=== PATIENT | female | born 1970 | race Caucasian/White ===

== ENCOUNTER → 2016-03-29 | Outpatient (CLI) | payer SELFPAY ==
--- NOTE | 2016-03-29 15:53 | US ---
EXAMINATION TYPE: US pelvic complete DATE OF EXAM: 03/29/2016 3:45 PM COMPARISON: NONE CLINICAL HISTORY: N92.6 Irregular Menses. Pt states abnormal spotting x 1 month TECHNIQUE: Transabdominal (TA) pelvic ultrasound. Date of LMP: 03/05/2016 EXAM MEASUREMENTS: Uterus: 9.0 x 5.0 x 5.0 cm Endometrial Stripe: 0.5 cm Right Ovary: 4.0 x 1.8 x 2.5 cm Left Ovary: 3.5 x 2.1 x 3.2 cm TECHNOLOGIST IMPRESSION: wnl 1. Uterus: Retroverted wnl 2. Endometrium: wnl 3. Right Ovary: wnl 4. Left Ovary: wnl 5. Bilateral Adnexa: wnl 6. Posterior cul-de-sac: wnl No abnormality visualized within pelvis IMPRESSION: No significant abnormality is seen to account for patient's symptoms on this study.
== END | disposition home or self-care (01) ==
LOC: RADUSWWP 15:32
PROVIDERS: ATTEND Obstetrics & Gynecology
DX: N92.6 Irregular menstruation, unspecified (principal)
CPT/HCPCS: 76856; 84439; 84443

== ENCOUNTER → 2017-05-06 | Outpatient (CLI) | payer OTHER ==
--- NOTE | 2017-05-08 10:29 | MM ---
Reason for exam: screening (asymptomatic). Last mammogram was performed 3 years and 1 month ago. History: Family history of breast cancer in maternal aunt at age 50. Took hormonal contraceptives for 6 years. Physical Findings: A clinical breast exam by your physician is recommended on an annual basis and results should be correlated with mammographic findings. MG Screening Mammo w CAD Bilateral CC and MLO view(s) were taken. Prior study comparison: March 24, 2014, bilateral MG diagnostic mammo w CAD ILEANA. September 18, 2012, bilateral digital screening mammo w/CAD. The breast tissue is extremely dense which could obscure a lesion on mammography. No significant changes when compared with prior studies. ASSESSMENT: Benign, BI-RAD 2 RECOMMENDATION: Routine screening mammogram of both breasts in 1 year.
== END | disposition home or self-care (01) ==
LOC: RADMAMWWP 07:32
PROVIDERS: ATTEND Internal Medicine
DX: Z12.31 Encounter for screening mammogram for malignant neoplasm of breast (principal)
CPT/HCPCS: 77067

== ENCOUNTER 2019-04-26 06:10 | Day surgery (SDC) | payer BC ==
[2019-04-22 15:32] VITALS: BMI 24.3
--- NOTE | 2019-04-25 16:38 | P.HPOB ---
History of Present Illness H&P Date: 04/25/19 Chief Complaint: Menorrhagia with irregular cycle, tubal ligation This is a 48 y.o. female, 0, who presents for dilatation and curettage with hysteroscopy and Novasure endometrial ablation along with laparoscopic bilateral tubla ligation for menorrhagia with irregular cycle and family planning. She has tried control pills in the past, but had to stop them due to elevated blood pressure. Her menses are occuring every 3 weeks and last 5-7 days. The 1st 3 days are very heavy and she changes pads every 1-1.5 hours. She also has cramping up to a week before her menses. She also complains of back pain with her menses. She would like definitive surgical treatment and also needs tubal for control. 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 Social Hx: . 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 Review of Systems Constitutional: Reports night sweats, Denies chills, Denies fever Eyes: denies blurred vision, denies pain Ears, nose, mouth and throat: Denies headache, Denies sore throat Cardiovascular: Denies chest pain, Denies shortness of breath Respiratory: Denies cough Gastrointestinal: Denies abdominal pain, Denies diarrhea, Denies nausea, Denies vomiting Genitourinary: Reports dysmenorrhea, Reports menorrhagia Menstruation: Reports cycle < 21 days, Reports period heavy Musculoskeletal: Reports low back pain Integumentary: Denies pruritus, Denies rash Neurological: Denies numbness, Denies weakness Psychiatric: Denies anxiety, Denies depression Endocrine: Denies fatigue, Denies weight change Past Medical History Past Medical History: Hypertension, Osteoarthritis (OA) Additional Past Medical History / Comment(s): Infertility History of Any Multi-Drug Resistant Organisms: None Reported Additional Past Surgical History / Comment(s): HAD WISDOM TEETH REMOVED UNDER ANESTHESIA Past Anesthesia/Blood Transfusion Reactions: No Reported Reaction Past Psychological History: No Psychological Hx Reported Smoking Status: Never smoker Past Alcohol Use History: Occasional Past Drug Use History: None Reported - Past Family History Mother Family Medical History: Diabetes Mellitus Medications and Allergies Home Medications Medication Instructions Recorded Confirmed Type Aspirin [Adult Low Dose Aspirin EC] 81 mg PO DAILY 04/22/19 04/22/19 History Multivitamins, Thera [Multivitamin 1 tab PO DAILY 04/22/19 04/22/19 History (formulary)] amLODIPine [Norvasc] 5 mg PO DAILY 04/22/19 04/22/19 History Allergies Allergy/AdvReac Type Severity Reaction Status Date / Time No Known Allergies Allergy Verified 04/22/19 15:25 Exam Osteopathic Statement: *. No significant issues noted on an osteopathic structural exam other than those noted in the History and Physical/Consult. HEENT: within normal limits Heart: regular rate and rhythm Lungs: clear to auscultation bilaterally Abdomen: soft, non-tender Pelvic: uterus retroverted, small, non-tender, no adnexal masses or tenderness Extremities: neg. Shahab's Assessment and Plan (1) Menorrhagia with irregular cycle Current Visit: No Status: Acute Code(s): N92.1 - EXCESSIVE AND FREQUENT MENSTRUATION WITH IRREGULAR CYCLE SNOMED Code(s): 137608079 (2) Family planning Current Visit: No Status: Acute Code(s): Z30.09 - ENCOUNTER FOR OT GENERAL CNSL AND ADVICE ON CONTRACEPTION SNOMED Code(s): 555838107 Plan: Proceed with dilatation and curettage with hysteroscopy and Novasure endometrial ablation and laparoscopic bilateral tubal ligation via fulgaration. I have discussed the risks, benefits, and alternative therapies for the above- mentioned procedure and for both sedation/anesthesia as well as necessary blood products administration, if indicated, as they pertain to this patient. The patient has indicated her understanding and acceptance of the risks and procedures discussed.
[~2019-04-26 06:10] MED LIST: DEXAMETHASONE SOD PHOSPHATE 10 MG/ML 1 ML VIAL IV ONE; HYDROmorphone 0.5 MG/0.5 ML SYRINGE IVP PRN; LACTATED RINGERS 1,000 ML IV SCH; LIDOCAINE 1% (10MG/ML) FOR IV START INTRADERMA PRN; ONDANSETRON 4 MG/2 ML VIAL IVP ONE; Pre Op ABX Message 1 EACH MISC MISCELLANE ONE; SCOPOLAMINE 1.5MG/72HR PATCH TRANSDERM ONE
[2019-04-26] MEDS ORDERED: LACTATED RINGERS 1,000 ML IV ONE ×2 (06:37→08:20)
[2019-04-26] MEDS ORDERED: MIDAZOLAM 2 MG/2 ML VIAL IVP ONE (06:47)
[2019-04-26] MEDS ORDERED: SUCCINYLCHOLINE CHLORIDE 100 MG/5 ML SYR IV ONE (07:35)
[2019-04-26] MEDS ORDERED: NEOSTIGMINE 1 MG/ML 10 ML VIAL ONE (07:35)
[2019-04-26] MEDS ORDERED: KETOROLAC 30 MG/ML 1 ML VIAL ONE (07:35)
[2019-04-26] MEDS ORDERED: fentaNYL (PF) 50 MCG/ML 2 ML AMP ONE (07:35)
[2019-04-26] MEDS ORDERED: MIDAZOLAM 2 MG/2 ML VIAL ONE (07:35)
[2019-04-26] MEDS ORDERED: ROCURONIUM BROMIDE 10 MG/ML 5 ML VIAL IV ONE (07:35)
[2019-04-26] MEDS ORDERED: GLYCOPYRROLATE 0.2 MG/ML 2 ML VIAL ONE (07:35)
[2019-04-26] MEDS ORDERED: LIDOCAINE 1% INJ 10MG/ML (20 ML MDV) ONE (07:35)
[2019-04-26] MEDS ORDERED: PROPOFOL 10 MG/ML 20 ML VIAL IV ONE (07:35)
[2019-04-26] MEDS ORDERED: HYDROmorphone (PF) 1 MG/ML ONE (07:35)
[2019-04-26] MEDS ORDERED: BUPIVACAINE (PF) 0.25% 30 ML VIAL SQ ONE ×2 (08:21→08:28)
--- NOTE | 2019-04-26 08:35 | P.OP ---
Date of Procedure: 04/26/19 Preoperative Diagnosis: Menorrhagia with irregular cycle Family planning Postoperative Diagnosis: Same Procedure(s) Performed: Dilation and curettage with hysteroscopy and NovaSure endometrial ablation Anesthesia: FABIOLA Surgeon: Enid Guillory Estimated Blood Loss (ml): 10 Pathology: other (Endometrial curettings) Condition: stable Disposition: same day Indications for Procedure: This is a 48 y.o. female, 0, who presents for dilatation and curettage with hysteroscopy and Novasure endometrial ablation along with laparoscopic bilateral tubla ligation for menorrhagia with irregular cycle and family planning. She has tried control pills in the past, but had to stop them due to elevated blood pressure. Her menses are occuring every 3 weeks and last 5-7 days. The 1st 3 days are very heavy and she changes pads every 1-1.5 hours. She also has cramping up to a week before her menses. She also complains of back pain with her menses. She would like definitive surgical treatment and also needs tubal for control. Operative Findings: Uterus is mid position, sounded to 7-1/2 cm. Cervix is sounded to 3 cm. Upon hysteroscopy, a very dyssynchronous endometrial pattern was noted. Left tubal ostia was visualized the right tubal ostia was completely visualized. Normal uterus tubes and ovaries are noted. Appendix and gallbladder are both visualized and appear normal. Description of Procedure: The patient is taken to the operating room. She is placed in the dorsal lithotomy position after general anesthesia was given. She is prepped and draped in the normal sterile fashion. Bladder is drained with a catheter and then removed. Pelvic exam is performed under anesthesia. Uterus is found to be mid position with no adnexal masses. She is placed in slight Trendelenburg position. A right angle retractor is used to visualize the cervix. The anterior lip of the cervix is grasped with a single-tooth tenaculum. Cervix is sounded to 3 cm. Uterus is sounded to 0.5 cm. Cervix is gently dilated with Pulido dilators until a hysteroscope could be passed. Hysteroscopy is performed using normal saline. The above noted findings are noted. Next a polyp forceps is introduced. A moderate amount of tissue was obtained. Next medium-sized size sharp curette was placed. A moderate amount of endometrial curettings were obtained. Next NovaSure array was inserted into the endometrial cavity. Length was set at 4.5 cm and width was determined to be to 0.5 cm. Next cavity assessment was completed and passed on the first try. Next NovaSure array was fired at 62 W for 79 seconds. Next the array was removed, inspected and then discarded. Next the hysteroscope was reinserted. Uniform charring was noted. Pictures were taken. Hysteroscope was removed. Next a kroner uterine manipulator is inserted through the cervix and the balloon is inflated. Single- tooth tenaculum is removed and speculum is removed. Gloves are changed and attention is turned to the abdomen. A small stab incision was made with a scalpel in the infraumbilical fold. A towel clip was placed above the umbilicus for retraction. A 5 mm disposable bladeless trocar was then inserted into the peritoneal cavity under direct visualization. Once inside, pneumoperitoneum was achieved with CO2 gas. The insert was removed and the camera was placed. Intraperitoneal placement was confirmed. No bleeding was noted. Next the patient was placed in Trendelenburg position. A small stab incision was made suprapubically and a 5 mm disposable bladeless trocar was inserted into the peritoneal cavity under direct visu alization. Once inside pelvic contents were inspected. Next a bipolar Kleppinger instrument was placed through the inferior trocar and the midportion of each tube was brought away from other structures and completely fulgurated on approximate 2-3 cm segment of each tube. Excellent hemostasis was noted. Pictures were taken. Pneumoperitoneum was released after the inferior trocar was removed under direct visualization. The upper trocar was then removed. The skin incisions were then closed with 4-0 Vicryl suture in a subcuticular fashion. Incisions were then injected with quarter percent Marcaine. Approximately 5 mL were used. Next the kroner uterine manipulator was removed. Minimal bleeding was noted. All sponge and needle counts are correct. The patient is then taken to recovery room in stable condition.
[2019-04-26 09:02] VITALS: RESP 16; TEMP 98.6
[2019-04-26] MEDS ORDERED: ONDANSETRON 4 MG/2 ML VIAL IVP ONE (10:10)
[2019-04-26 10:31] VITALS: BP 130/85; PULSE 76
[2019-04-26] MEDS ORDERED: DEXAMETHASONE SOD PHOS (MDV) 100 MG/10 ML VIAL IVP ONE (11:00)
[2019-04-26] MEDS ORDERED: METOCLOPRAMIDE 5 MG/ML 2 ML VIAL IVP ONE (11:00)
== END 2019-04-26 11:44 | disposition home or self-care (01) ==
LOC: OR 06:10
PROVIDERS: ATTEND Obstetrics & Gynecology
DX: Z30.2 Encounter for sterilization (principal); N92.1 Excessive and frequent menstruation with irregular cycle; N85.8 Other specified noninflammatory disorders of uterus; I10 Essential (primary) hypertension; M19.90 Unspecified osteoarthritis, unspecified site; Z79.82 Long term (current) use of aspirin; Z79.899 Other long term (current) drug therapy; Z83.3 Family history of diabetes mellitus
CPT/HCPCS: 81025; 88305; 58563; 58670; J2250; J1100 ×2; J2710; J2765; J2405; J2001; J3010; J1885; J1170 ×2; J0330; J2704

== ENCOUNTER → 2020-05-25 | Outpatient (CLI) | payer BC ==
--- NOTE | 2020-05-25 17:16 | XR ---
EXAMINATION: XR chest 2V DATE AND TIME: 05/25/2020 5:06 PM CLINICAL INDICATION: PHH; Cough/Pneumonia TECHNIQUE: Departmental protocol COMPARISON: None FINDINGS: The lungs are clear. The pleural spaces are negative. The cardiac silhouette is not enlarged. The remainder of the mediastinal silhouette is unremarkable. The skeletal structures and soft tissues are negative for acute findings. IMPRESSION: No acute radiographic process.
== END | disposition home or self-care (01) ==
LOC: RADXRMAIN 16:31
PROVIDERS: ATTEND Internal Medicine
DX: J18.9 Pneumonia, unspecified organism (principal)
CPT/HCPCS: 71046

== ENCOUNTER → 2020-09-11 | Outpatient (CLI) | payer BC ==
--- NOTE | 2020-09-11 14:19 | XR ---
EXAMINATION TYPE: XR lumbosacral spine min 4V DATE OF EXAM: 09/11/2020 CLINICAL HISTORY: Low back pain x2 months TECHNIQUE: Frontal, lateral, and oblique images of the lumbar spine are obtained. COMPARISON: None FINDINGS: There are 5 lumbar type vertebral bodies identified. The lumbar spine shows satisfactory alignment without evidence of acute fracture or dislocation. Vertebral body heights and disk space he ights are within normal limits. The oblique images appear within normal limits. The overlying soft tissue appears unremarkable. IMPRESSION: No acute fracture or dislocation is seen in the lumbar spine.
== END | disposition home or self-care (01) ==
LOC: RADXRMAIN 11:51
PROVIDERS: ATTEND Internal Medicine
DX: M54.5 Low back pain (principal)
CPT/HCPCS: 72110

== ENCOUNTER → 2021-04-05 | Outpatient (CLI) | payer BC ==
--- NOTE | 2021-04-06 14:29 | MM ---
Reason for exam: screening (asymptomatic). Last mammogram was performed 3 years and 11 months ago. History: Family history of breast cancer in maternal aunt at age 50. Took hormonal contraceptives for 6 years. Physical Findings: A clinical breast exam by your physician is recommended on an annual basis and results should be correlated with mammographic findings. MG Screening Mammo w CAD Bilateral CC and MLO view(s) were taken. Prior study comparison: May 06, 2017, bilateral MG screening mammo w CAD. March 24, 2014, bilateral MG diagnostic mammo w CAD ILEANA. The breast tissue is heterogeneously dense. This may lower the sensitivity of mammography. There is chronic nodularity in the left breast, stable. No significant changes when compared with prior studies. ASSESSMENT: Benign, BI-RAD 2 RECOMMENDATION: Routine screening mammogram of both breasts in 1 year.
== END | disposition home or self-care (01) ==
LOC: RADMAMWWP 08:13
PROVIDERS: ATTEND Obstetrics & Gynecology
DX: Z12.31 Encounter for screening mammogram for malignant neoplasm of breast (principal); Z80.3 Family history of malignant neoplasm of breast
CPT/HCPCS: 77067

== ENCOUNTER → 2022-01-25 | Outpatient (CLI) | payer BC ==
[2022-01-25 14:37] LABS: Basophils # (A) 0.04 X 10*3/uL (0.00-0.10); Basophils % (A) 0.5 %; Eosinophils # (A) 0.28 X 10*3/uL (0.04-0.35); Eosinophils % (A) 3.7 %; HCT 45.4 % (37.2-46.3); Immature Grans, Automated 0.4 %; Lymphocytes # (A) 1.71 X 10*3/uL (0.90-5.00); Lymphocytes % (A) 22.4 %; MCH 29.8 pg (27.0-32.0); MCV 90.3 fL (80.0-97.0); Mean Platelet Volume 8.8 fL (9.5-12.2); Monocytes # (A) 0.56 X 10*3/uL (0.20-1.00); Monocytes % (A) 7.3 %; NRBC Per 100 WBC 0 /100 WBCS (0.0-0.0); Neutrophils # (A) 5.02 X 10*3/uL (1.80-7.70); Neutrophils % (A) 65.7 %; Platelet Count 272 X 10*3/uL (140-440); RBC 5.03 X 10*6/uL (4.10-5.20); RDW 11.8 % (11.5-14.5); WBC 7.64 X 10*3/uL (4.50-10.00)
[2022-01-25 14:39] LABS: African American GFR (CKD) 87.7 (60.0-200.0); Anion Gap 12.5 mmol/L (10.00-18.00); BUN/Creat Ratio 20.36 Ratio (12.00-20.00); Blood Urea Nitrogen 18.2 mg/dL (9.0-27.0); Calcium 9.9 mg/dL (8.7-10.3); Carbon Dioxide 27.7 mmol/L (20.0-27.5); Non-African American GFR(CKD) 75.7 (60.0-200.0); Potassium 4.2 mmol/L (3.5-5.5)
== END | disposition home or self-care (01) ==
LOC: LABPAT 09:50
PROVIDERS: ATTEND Obstetrics & Gynecology
DX: Z01.812 Encounter for preprocedural laboratory examination (principal)
CPT/HCPCS: 36415; 80048; 85025

== ENCOUNTER 2022-02-04 05:37 | Day surgery (SDC) | payer BC ==
--- NOTE | 2022-02-03 13:48 | P.HPOB ---
History of Present Illness H&P Date: 02/03/22 Chief Complaint: Menorrrhagia with irregular cycle, dysmenorrhea This is a 51 y.o. female, 0, who presents for total laparoscopic hysterectomy with bilateral salpingooophorectomy with DaVinci and diagnostic cystoscopy, possible total abdominal hysterectomy due to menorrhagia with irregular cycle and dysmenorrhea. Patient complains of intermenstrual bleeding and spotting, and irregular and painful menses. She has a history of endometrial ablation about 2 years ago. Her pelvic ultrasound showed uterus measuring 8.3 x 4.9 x 4.3 cm with a 2.7 mm echogenic fluid collection and a two- sided endometrium with possible hematometria measuring 1.4 cm. Her left ovary showed a 2 cm cyst. She also complains of hot flashes. 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 History of previous tubal ligation. Social Hx: . 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 Review of Systems Constitutional: Reports night sweats, Denies chills, Denies fever Eyes: denies blurred vision, denies pain Ears, nose, mouth and throat: Denies headache, Denies sore throat Cardiovascular: Denies chest pain, Denies shortness of breath Respiratory: Denies cough Gastrointestinal: Denies abdominal pain, Denies diarrhea, Denies nausea, Denies vomiting Genitourinary: Reports dysmenorrhea, Reports dyspareunia, Reports menorrhagia Menstruation: Reports menses variable, Reports period heavy Musculoskeletal: Reports low back pain, Reports myalgias Integumentary: Denies pruritus, Denies rash Neurological: Denies numbness, Denies weakness Psychiatric: Reports irritability, Denies anxiety, Denies depression Endocrine: Reports flushing Hematologic/Lymphatic: Reports easy bruising Past Medical History Past Medical History: Hypertension History of Any Multi-Drug Resistant Organisms: None Reported Past Surgical History: Tubal Ligation, Uterine Ablation Additional Past Surgical History / Comment(s): endometrial ablation Past Anesthesia/Blood Transfusion Reactions: Postoperative Nausea & Vomiting (PONV) Past Psychological History: No Psychological Hx Reported Smoking Status: Never smoker Past Alcohol Use History: Occasional Past Drug Use History: None Reported - Past Family History Father Family Medical History: Coronary Artery Disease (CAD) Additional Family Medical History / Comment(s): heart transplant in 50's dialysis at end Mother Family Medical History: Coronary Artery Disease (CAD), Diabetes Mellitus Medications and Allergies Home Medications Medication Instructions Recorded Confirmed Type Aspirin [Adult Low Dose Aspirin EC] 81 mg PO DAILY 04/22/19 02/04/22 History Multivitamins, Thera [Multivitamin 1 tab PO DAILY 04/22/19 02/04/22 History (formulary)] amLODIPine [Norvasc] 5 mg PO DAILY 04/22/19 02/04/22 History Allergies Allergy/AdvReac Type Severity Reaction Status Date / Time No Known Allergies Allergy Verified 02/04/22 06:11 Exam Osteopathic Statement: *. No significant issues noted on an osteopathic structural exam other than those noted in the History and Physical/Consult. HEENT: within normal limits Heart: regular rate and rhythm Lungs: clear to auscultation bilaterally Abdomen: soft, non-tender Pelvic: uterus small, retroverted, non-tender, 1st degree uterine prolapse, no adnexal masses or tenderness noted Extremities: negative Shahab's Assessment and Plan (1) Dysmenorrhea Current Visit: No Status: Acute Code(s): N94.6 - DYSMENORRHEA, UNSPECIFIED SNOMED Code(s): 524318179 (2) Menorrhagia with irregular cycle Current Visit: No Status: Acute Code(s): N92.1 - EXCESSIVE AND FREQUENT MENSTRUATION WITH IRREGULAR CYCLE SNOMED Code(s): 433672248 Plan: Proceed with total laparoscopic hysterectomy with bilateral salpingooophorectomy with DaVinci and diagnostic cystoscopy, possible total abdominal hysterectomy with bilateral salpingooophorectomy. I have discussed the risks, benefits, and alternative therapies for the above- mentioned procedure and for both sedation/anesthesia as well as necessary blood products administration, if indicated, as they pertain to this patient. The patient has indicated her understanding and acceptance of the risks and procedures discussed.
[2022-02-04] MEDS ORDERED: LACTATED RINGERS 1,000 ML IV ONE (06:10)
[2022-02-04] MEDS ORDERED: LIDOCAINE 1% (10MG/ML) FOR IV START INTRADERMA ONE (06:27)
[2022-02-04] MEDS ORDERED: ONDANSETRON 4 MG/2 ML VIAL ONE ×2 (06:39→07:08)
[2022-02-04] MEDS ORDERED: ONDANSETRON 4 MG/2 ML VIAL IVP ONE (06:43)
[2022-02-04] MEDS ORDERED: DEXAMETHASONE SOD PHOSPHATE 4 MG/ML 1 ML VIAL IVP ONE (06:44)
[2022-02-04] MEDS ORDERED: MIDAZOLAM 2 MG/2 ML VIAL IVP ONE (06:57)
[2022-02-04] MEDS ORDERED: diphenhydrAMINE 50 MG/ML 1 ML VIAL ONE (07:08)
[2022-02-04] MEDS ORDERED: KETAMINE 10 MG/ML 20 ML VIAL ONE (07:08)
[2022-02-04] MEDS ORDERED: MIDAZOLAM 2 MG/2 ML VIAL ONE (07:08)
[2022-02-04] MEDS ORDERED: PROPOFOL 10 MG/ML 20 ML VIAL IV ONE (07:08)
[2022-02-04] MEDS ORDERED: GLYCOPYRROLATE 0.2 MG/ML 2 ML VIAL ONE (07:08)
[2022-02-04] MEDS ORDERED: KETOROLAC 15 MG/ML 1 ML VIAL ONE (07:08)
[2022-02-04] MEDS ORDERED: LIDOCAINE 2% INJ 20 MG/ML (2 ML VIAL) ONE (07:08)
[2022-02-04] MEDS ORDERED: ROCURONIUM 10 MG/ML (5 ML VIAL) IV ONE (07:08)
[2022-02-04] MEDS ORDERED: fentaNYL (PF) 50 MCG/ML 2 ML AMP ONE (07:08)
[2022-02-04] MEDS ORDERED: SUCCINYLCHOLINE CHLORIDE 200 MG/10 ML VIAL IV ONE (07:08)
[2022-02-04] MEDS ORDERED: NEOSTIGMINE 1 MG/ML 10 ML VIAL ONE (07:08)
[2022-02-04] MEDS ORDERED: BUPIVACAINE (PF) 0.25% 30 ML VIAL SQ ONE (08:11)
--- NOTE | 2022-02-04 09:03 | P.OP ---
Date of Procedure: 02/04/22 Preoperative Diagnosis: Menorrhagia with irregular cycle Dysmenorrhea Postoperative Diagnosis: Same Procedure(s) Performed: Total laparoscopic hysterectomy with bilateral salpingo-oophorectomy with da Che Diagnostic cystoscopy Anesthesia: FABIOLA Surgeon: Enid Guillory Shoe Packer #1: Lauren Alatorre Estimated Blood Loss (ml): 20 Pathology: other (Uterus with cervix, bilateral tubes and ovaries) Condition: stable Disposition: floor Indications for Procedure: This is a 51 y.o. female, 0, who presents for total laparoscopic hysterectomy with bilateral salpingooophorectomy with DaVinci and diagnostic cystoscopy, possible total abdominal hysterectomy due to menorrhagia with irregular cycle and dysmenorrhea. Patient complains of intermenstrual bleeding and spotting, and irregular and painful menses. She has a history of endometrial ablation about 2 years ago. Her pelvic ultrasound showed uterus measuring 8.3 x 4.9 x 4.3 cm with a 2.7 mm echogenic fluid collection and a two- sided endometrium with possible hematometria measuring 1.4 cm. Her left ovary showed a 2 cm cyst. She also complains of hot flashes. Operative Findings: Small retroverted uterus with normal tubes and small right hemorrhagic ovarian cyst. Evidence of bilateral tubal ligation in the past. Description of Procedure: The patient was taken to the operating room where she is placed in the dorsal lithotomy position on a Huggie board. Her arms are tucked at her sides and cushioned. Once she is in adequate position and anesthesia was given, the Huggie board is inflated. She is prepped and draped in the normal sterile fashion. Next a weighted speculum was placed in the patient's vagina. A right angle retractor is used to visualize the cervix. The anterior lip of the cervix is grasped with a single-tooth tenaculum. Uterus is sounded to 7 cm. Cervix is gently dilated with Pulido dilators. Next the cervix with is measured at 3.5 cm. 0 Vicryl stitches are placed at the 3 and 9:00 positions on the cervix and held. Next the HUMI manipulator is placed within the cervix and the internal balloon is inflated and then the 0 Vicryl sutures are brought through the HUMI and then the cervical cup is pressed against the cervix until the click is heard. Next the Higginbotham catheter is inserted in the bladder. Gloves are changed and attention is turned to the abdomen. The uterus is anteverted and then marked on the abdomen. An incision is made above the umbilicus approximately 8 cm above the top of the uterus and then a 5 mm disposable bladeless trocar is inserted under direct visualization with low flow. Once inside high flow is turned on and intra-abdominal contents were inspected. Another incision is made on the right side approximately 8 cm lateral to the umbilicus in the midline and an 8 mm da Che port is placed under direct visualization. The same procedure is carried out on the left side. Next an licensed investment sales assistant port is placed approximately 6 cm superior to the right da Che port and lateral to the camera port using a 12 mm trocar under direct visualization. Next the 5 mm camera sleeve is replaced with an 8 mm da Che port. Next the da Che robot is docked to the patient from her left side. The ports are attached to the arms. Smoke evacuator is also attached. The camera is inserted and then a monopolar scissors is placed through the right port and a [place] forcep was placed through the left port under direct visualization. Energy is attached to both ports. At this time I broke scrub to go to the robot console. The end of the left fallopian tube is grasped by the licensed investment sales assistant and bipolar energy is used to cauterize the infundibulopelvic ligament. The remainder of the mesosalpinx is then grasped with the [place] and bipolar energy is applied. Next the round ligament is cauterized with bipolar energy and then monopolar scissors are used to cut the round ligament and open up the posterior leaf of the broad ligament down to the uterosacral ligaments. Uterine arteries are then cauterized with bipolar energy using the [place] grasper. Monopolar scissors were then used to carefully dissect the bladder reflection and the bladder flap is created. Next attention is turned to the right side of the pelvis. The end of the right fallopian tube is grasped and then bipolar energy is applied to the infundibulopelvic ligament. This was cut with the monopolar scissors. The remainder of the mesosalpinx is then cauterized using bipolar energy and cutting with monopolar scissors. The round ligament on the right is cauterized with bipolar energy and then cut and then the posterior edge of the broad leaf is opened up to the uterosacral ligaments. Uterine arteries are cauterized with bipolar energy. Next the uterus is retroverted and the balloon is inflated. Monopolar scissors are used to cut through the vaginal cuff along the HUMI cuff anteriorly. This is carried around to the left side again using monopolar and bipolar energy. The uterus is anteverted and then the posterior cuff is cut along the HUMI cuff using monopolar scissors. The remainder of the right side of the cuff is removed with monopolar and bipolar energy. Once the uterus is freed it is removed through the vagina. Monopolar and bipolar energy are used to cauterize any small bleeders left behind. Next the arms are switched out to the right arm with Roger suture cut and the left arm with a Danie grasper. An O-Stratafix suture is then used to suture from the right side of the cuff across to the left side in a running fashion after securing the suture with the small loop on the end. Once the left side of the cuff was reached, a couple more sutures were placed going towards the right side to secure the suture. Suture was then cut and removed from the field. Irrigation was carried out. Good hemostasis was noted. Picture was taken. Next the instruments are removed from the arms. The arms are detached from the trochars. The da Che robot is then undocked and stowed. The trochars are removed after releasing the pneumoperitoneum area incisions are then sutured with 4-0 undyed Vicryl suture in a subcuticular fashion and then injected with 1% lidocaine with epi. Approximately 10 mL were used. I regowned and cystoscopy was then performed. Both ureteral orifices were visualized with flow from both sides. Cystoscopy was then completed and Higginbotham catheter was replaced. Clear urine was noted. All sponge and needle counts are correct. The patient is then taken to recovery room in stable condition.
[2022-02-04] MEDS ORDERED: ONDANSETRON 4 MG/2 ML VIAL IVP PRN (09:14)
[2022-02-04] MEDS ORDERED: METOCLOPRAMIDE 5 MG/ML 2 ML VIAL IVP PRN (09:14)
[2022-02-04] MEDS ORDERED: ZOLPIDEM 5 MG TAB PO PRN (09:14)
[2022-02-04] MEDS ORDERED: SIMETHICONE 80 MG CHEWABLE PO PRN (09:14)
[2022-02-04] MEDS ORDERED: KETOROLAC 15 MG/ML 1 ML VIAL IVP PRN (09:14)
[2022-02-04] MEDS ORDERED: diphenhydrAMINE 50 MG/ML 1 ML VIAL IVP PRN (09:14)
[2022-02-04] MEDS ORDERED: HYDROmorphone 0.5 MG/0.5 ML SYRINGE IVP ONE (09:21)
[2022-02-04] MEDS: HYDROmorphone 0.5 MG/0.5 ML SYRINGE IVP ONE ×2 (09:21→09:34)
[2022-02-04] MEDS ORDERED: ACETAMINOPHEN IV (For NPO) 1,000 MG in EMPTY BAG 1 BAG IVPB ONE (11:00)
[2022-02-04 11:39] VITALS: RESP 16
[2022-02-04] MEDS: IBUPROFEN 600 MG TAB PO PRN (17:02)
[2022-02-04] MEDS: SENNOSIDES-DOCUSATE SODIUM 1 EACH TAB PO SCH (19:47)
[2022-02-04] MEDS: LACTATED RINGERS 1,000 ML IV SCH (20:26)
[2022-02-04] MEDS ORDERED: ACETAMINOPHEN TAB 325 MG TAB PO PRN (23:31)
[2022-02-05] MEDS: IBUPROFEN 600 MG TAB PO PRN (05:19)
[2022-02-05] MEDS: amLODIPine 5 MG TAB PO SCH ×2 (06:03→06:13)
[2022-02-05] MEDS: LACTATED RINGERS 1,000 ML IV SCH (06:15)
[2022-02-05 07:03] LABS: Basophils % (A) 0 %; Eosinophils # (A) 0.1 k/uL (0-0.7); Eosinophils % (A) 1 %; HCT 39.9 % (34.0-46.0); HGB 13.8 gm/dL (11.4-16.0); Lymphocytes # (A) 1.5 k/uL (1.0-4.8); Lymphocytes % (A) 15 %; MCH 30.5 pg (25.0-35.0); MCHC 34.5 g/dL (31.0-37.0); MCV 88.4 fL (80.0-100.0); Mean Platelet Volume 7.1; Monocytes # (A) 0.5 k/uL (0-1.0); Monocytes % (A) 5 %; Neutrophils # (A) 7.7 k/uL (1.3-7.7); Neutrophils % (A) 77 %; Platelet Count 224 k/uL (150-450); RBC 4.51 m/uL (3.80-5.40); RDW 11.6 % (11.5-15.5)
[2022-02-05] MEDS ORDERED: ACETAMINOPHEN TAB 325 MG TAB PO PRN (07:23)
--- NOTE | 2022-02-05 08:14 | P.DS ---
Providers Date of admission: 02/04/2022 Expected date of discharge: 02/05/22 Attending physician: Enid Guillory Primary care physician: Franc Christie - Discharge Diagnosis(es) (1) Dysmenorrhea Current Visit: No Status: Acute (2) Menorrhagia with irregular cycle Current Visit: No Status: Acute Hospital Course: This is a 51-year-old female who underwent a total laparoscopic hysterectomy with bilateral salpingo-oophorectomy via da Che and diagnostic cystoscopy on 02/04/2022. Her postoperative course has been essentially uncomplicated. Her pain has been fairly well-controlled with oral pain medications. She is tolerating regular diet. She has been urinating large amounts. She is only complaining of some lower abdominal pressure. Bleeding has been minimal. Vital signs are stable with mildly elevated blood pressures. Abdomen is soft with positive bowel sounds 4. Bandages are dry. No ecchymosis is noted. Nery-pad shows scant serosanguineous discharge. Impression is status post the above noted procedure postoperative day #1. Plan is to discharge home today. Routine postoperative instructions are given. She may shower but no tub baths for 1 week. No intercourse for 6-8 weeks. She is advised follow-up in the office in approximately 2 weeks for a postoperative check. She will be given a prescription for ibuprofen and a few oxycodone. She has been counseled regarding opioid use and will sign a second form for the [facility]. She is advised to call the office if she has any further questions or concerns prior to her appointment time. Procedures: Total laparoscopic hysterectomy with bilateral salpingo-oophorectomy via da Che with diagnostic cystoscopy on 02/04/2022 Patient Condition at Discharge: Stable Plan - Discharge Summary Discharge Rx Participant: No New Discharge Prescriptions: New Ibuprofen [Motrin] 600 mg PO Q6HR PRN #60 tab PRN Reason: Mild Discomfort oxyCODONE HCL [OxyIR] 5 mg PO Q6HR PRN #12 tab PRN Reason: Moderate To Severe Pain (4-10) Continue amLODIPine [Norvasc] 5 mg PO DAILY Multivitamins, Thera [Multivitamin (formulary)] 1 tab PO DAILY Aspirin [Adult Low Dose Aspirin EC] 81 mg PO DAILY Discharge Medication List Aspirin [Adult Low Dose Aspirin EC] 81 mg PO DAILY 04/22/19 [History] Multivitamins, Thera [Multivitamin (formulary)] 1 tab PO DAILY 04/22/19 [History] amLODIPine [Norvasc] 5 mg PO DAILY 04/22/19 [History] Ibuprofen [Motrin] 600 mg PO Q6HR PRN #60 tab 02/05/22 [Rx] oxyCODONE HCL [OxyIR] 5 mg PO Q6HR PRN #12 tab 02/05/22 [Rx] Follow up Appointment(s)/Referral(s): Enid Guillory DO [Doctor of Osteopathic Medicine] - 2 Weeks Activity/Diet/Wound Care/Special Instructions: Activity as tolerated. Diet as tolerated. May shower but no tub baths for 1 week. No intercourse for 6-8 weeks. No heavy lifting. Discharge Disposition: HOME SELF-CARE
[2022-02-05 08:15] VITALS: BP 148/88; PULSE 84; TEMP 98.1
[2022-02-05] MEDS: SENNOSIDES-DOCUSATE SODIUM 1 EACH TAB PO SCH (12:40)
== END 2022-02-05 11:35 | disposition home or self-care (01) ==
LOC: OR 05:37 → 4FBP 08:46 → OR 02-05 11:35
PROVIDERS: ATTEND Obstetrics & Gynecology
DX: N83.11 Corpus luteum cyst of right ovary (principal); N83.01 Follicular cyst of right ovary; N83.202 Unspecified ovarian cyst, left side; N85.8 Other specified noninflammatory disorders of uterus; Z98.51 Tubal ligation status; N94.10 Unspecified dyspareunia; I10 Essential (primary) hypertension; Z98.890 Other specified postprocedural states; F10.10 Alcohol abuse, uncomplicated; Z82.49 Family history of ischemic heart disease and other diseases of the circulatory system; Z94.1 Heart transplant status; Z83.3 Family history of diabetes mellitus; Z79.82 Long term (current) use of aspirin; Z79.811 Long term (current) use of aromatase inhibitors
CPT/HCPCS: 58571; 81025; 86900; 86901; 85025; 86850; J2250; J1100; J0690; J2405; J0131; J1170; 88307

== ENCOUNTER → 2022-11-12 | Outpatient (CLI) | payer BC ==
--- NOTE | 2022-11-13 18:25 | MM ---
Reason for Exam: Screening (asymptomatic). Last mammogram was performed 1 year(s) and 7 month(s) ago. Patient History: Menarche at age 17. Hysterectomy at age 51. Postmenopausal. Patient used Hormonal Contraceptives for 6 years. Maternal aunt had breast cancer, age 50. Risk Values: Sanna 5 year model risk: 0.6%. NCI Lifetime model risk: 6.0%. Prior Study Comparison: 03/24/2014 Bilateral Diagnostic Mammogram, [facility]. 05/06/2017 Bilateral Screening Mammogram, [facility]. 04/05/2021 Bilateral Screening Mammogram, [facility]. Tissue Density: The breast tissue is extremely dense which could obscure a lesion on mammography. Findings: Analyzed By CAD. Pattern appears symmetrical and stable. Coarse calcification is developing within the right breast. Additional prior calcification is stable in number and positioning from recent comparison. No suspicious groups of microcalcifications, spiculated or lobular masses, architectural distortion or other secondary signs of malignancy are mammographically apparent. Overall Assessment: Benign, BI-RAD 2 Management: Screening Mammogram of both breasts in 1 year. A negative mammogram report should not preclude additional follow up of suspicious palpable abnormalities. Patient should continue monthly self breast exam. A clinical breast exam by your physician is recommended on an annual basis and results should be correlated with mammographic findings. Electronically signed and approved by: Olayinka Boucher D.O. Radiologis
== END | disposition home or self-care (01) ==
LOC: RADMAMWWP 08:24
PROVIDERS: ATTEND Family Medicine
DX: Z12.31 Encounter for screening mammogram for malignant neoplasm of breast (principal); Z78.0 Asymptomatic menopausal state; Z80.3 Family history of malignant neoplasm of breast
CPT/HCPCS: 77067

== ENCOUNTER → 2024-03-04 | Outpatient (CLI) | payer BC ==
--- NOTE | 2024-03-04 10:40 | MM ---
Reason for Exam: Screening (asymptomatic). Last mammogram was performed 1 year(s) and 4 month(s) ago. Patient History: Menarche at age 17. Patient has no children. Left ovary removed at age 51. Right ovary removed at age 51. Hysterectomy at age 51. Postmenopausal. Patient used Hormonal Contraceptives for 6 years. Maternal aunt had breast cancer, age 50. Risk Values: Sanna 5 year model risk: 1.0%. NCI Lifetime model risk: 8.9%. Prior Study Comparison: 05/06/2017 Bilateral Screening Mammogram, [facility]. 04/05/2021 Bilateral Screening Mammogram, [facility]. 11/12/2022 Bilateral MG screening mammo w CAD, [facility]. Tissue Density: There are scattered areas of fibroglandular density. Findings: Analyzed By CAD. Right breast: There is no suspicious group of microcalcifications or new suspicious mass. Benign-appearing calcifications right breast. Left breast: There is no suspicious group of microcalcifications or new suspicious mass. Benign-appearing calcifications left breast. Overall Assessment: Benign, BI-RAD 2 Management: Screening Mammogram of both breasts in [address] [facility] will attempt to contact patient to return for supplemental views and ultrasound if indicated. Patient should continue monthly self-breast exams. A clinical breast exam by your physician is recommended on an annual basis. This exam should not preclude additional follow-up of suspicious palpable abnormalities. Note on Sanna scores and lifetime risk: 1. A Sanna score greater than 3% is considered moderate risk. If this is the case, consider specialist referral to assess eligibility for a risk reducing agent. 2. If overall lifetime risk for the development of breast cancer is 20% or higher, the patient may qualify for future screening with alternating mammogram and breast MRI. [facility], , 03/04/2024 10:36 AM. Electronically signed and approved by: Ruslan Alvarez DO
== END | disposition home or self-care (01) ==
LOC: RADMAMWWP 08:38
PROVIDERS: ATTEND Family Medicine
DX: Z12.31 Encounter for screening mammogram for malignant neoplasm of breast (principal); Z90.722 Acquired absence of ovaries, bilateral; Z78.0 Asymptomatic menopausal state; Z80.3 Family history of malignant neoplasm of breast; R92.323 Mammographic fibroglandular density, bilateral breasts
CPT/HCPCS: 77067